=== PATIENT | female | born 1965 | race Caucasian/White ===

== ENCOUNTER 2024-04-20 16:59 | Inpatient (IN) | payer OTHER ==
[~2024-04-20] VITALS: Ht 152.4 cm; Wt 70.8 kg
[2024-04-20 17:00] VITALS: BP 126/80; PULSE 72; RESP 18; TEMP 98.6; O2SAT 95
[2024-04-20] MEDS: NACL 0.9% 1,000 ML IV ONE ×2 (17:32→19:04)
[2024-04-20] MEDS: ONDANSETRON 4 MG/2 ML VIAL IVP ONE (17:33)
[2024-04-20 17:46] LABS: BASOPHILS % (AUTO) 0.9 % (0.0-2.0); EOSINOPHILS # (AUTO) 0.1 K/uL (0-0.4); HEMATOCRIT 39.2 % (36-48); HEMOGLOBIN 13.5 g/dL (12.0-16.0); LYMPHOCYTES # (AUTO) 2.1 K/uL (2.5-16.5); LYMPHOCYTES % (AUTO) 39.2 % (20.5-51.1); MEAN CORPUSCULAR HEMOGLOBIN 32 pg (27-31); MEAN CORPUSCULAR HGB CONC 35 g/dL (33-37); MEAN CORPUSCULAR VOLUME 93.6 fL (80-94); MONOCYTES # (AUTO) 0.3 K/uL (0.8-1.0); MONOCYTES % (AUTO) 5.6 % (1.7-9.3); NEUTROPHILS # (AUTO) 2.8 K/uL (1.8-7.7); NEUTROPHILS % (AUTO) 52.3 % (42.2-75.2); PLATELET COUNT (AUTO) 237 K/uL (140-450); RED BLOOD CELL COUNT(AUTO) 4.19 MIL/uL (4.20-5.40); RED CELL DISTRIBUTION WIDTH 13.3 % (11.6-13.7); WHITE BLOOD COUNT (AUTO) 5.3 K/uL (4.8-10.8)
[2024-04-20 18:12] LABS: ANION GAP 15.4 (8-16); CARBON DIOXIDE 26.4 mmol/L (21-32); CREATININE 1.4 mg/dL (0.6-1.3); POTASSIUM 3.8 mmol/L (3.5-5.1)
[2024-04-20 18:16] LABS: ALANINE AMINOTRANSFERASE 86 U/L (12-78); ALCOHOL, BLOOD 13 mg/dL (<10); ALKALINE PHOSPHATASE 127 U/L (50-136); ASPARTATE AMINOTRANSFERASE 78 U/L (15-37); BILIRUBIN,DIRECT 0.1 mg/dL (0.0-0.3); CREATINE KINASE, TOTAL 105 U/L (26-192); TOTAL BILIRUBIN 0.5 mg/dL (0.0-1.0); TOTAL PROTEIN, SERUM 7.5 g/dL (6.4-8.2)
[2024-04-20 18:27] LABS: ACETAMINOPHEN < 0.5 ug/ml (10-30)
[2024-04-20 19:59] VITALS: O2SAT 100
[2024-04-20 22:08] VITALS: O2SAT 100
[2024-04-20 22:16] LABS: AMPHETAMINE, URINE POSITIVE ng/ml (NEG <=1000); BARBITURATE, URINE NEGATIVE ng/ml (NEG <=200); BENZODIAZEPINE, URINE NEGATIVE ng/mL (NEG <=200); CANNABINOID, URINE NEGATIVE ng/mL (NEG <=50); COCAINE, URINE NEGATIVE ng/mL (NEG <=300); OPIATE, URINE POSITIVE ng/mL (NEG <=2000); PHENCYCLIDINE SCREEN,URINE NEGATIVE ng/mL (NEG <=25)
[2024-04-20] MEDS ORDERED: cefTRIAXone 1,000 MG VIAL ONE (23:27)
[2024-04-20] MEDS ORDERED: AZITHROMYCIN 500 MG INJ VIAL IV ONE (23:33)
[2024-04-20] MEDS: AZITHROMYCIN 500 MG in DEXTROSE 5% 250 ML IV ONE (23:39)
[2024-04-20 23:52] LABS: LACTIC ACID 4.1 mmol/L (0.4-2.0)
[2024-04-21] VITALS (10 sets, daily range): BP systolic 97–119; BP diastolic 50–65; PULSE 64–89; RESP 18–20; TEMP 96.5–97.9; O2SAT 95–100
[2024-04-21] MEDS ORDERED: ACETAMINOPHEN 325 MG TAB PO PRN (01:55)
[2024-04-21] MEDS ORDERED: ONDANSETRON 4 MG/2 ML VIAL IVP PRN (01:55)
[2024-04-21] MEDS: NACL 0.9% 1,000 ML IV SCH (02:35)
[2024-04-21 09:02] LABS: BASOPHILS # (AUTO) 0.1 K/uL (0.00-0.22); BASOPHILS % (AUTO) 0.6 % (0.0-2.0); EOSINOPHILS # (AUTO) 0.1 K/uL (0-0.4); EOSINOPHILS % (AUTO) 0.6 % (0.0-4.0); HEMATOCRIT 32.6 % (36-48); HEMOGLOBIN 11.3 g/dL (12.0-16.0); LYMPHOCYTES # (AUTO) 2.2 K/uL (2.5-16.5); LYMPHOCYTES % (AUTO) 24.5 % (20.5-51.1); MEAN CORPUSCULAR HEMOGLOBIN 33 pg (27-31); MEAN CORPUSCULAR HGB CONC 35 g/dL (33-37); MEAN CORPUSCULAR VOLUME 94.3 fL (80-94); MONOCYTES # (AUTO) 0.5 K/uL (0.8-1.0); MONOCYTES % (AUTO) 5.4 % (1.7-9.3); NEUTROPHILS # (AUTO) 6.3 K/uL (1.8-7.7); NEUTROPHILS % (AUTO) 68.9 % (42.2-75.2); PLATELET COUNT (AUTO) 190 K/uL (140-450); RED BLOOD CELL COUNT(AUTO) 3.46 MIL/uL (4.20-5.40); RED CELL DISTRIBUTION WIDTH 13.3 % (11.6-13.7); WHITE BLOOD COUNT (AUTO) 9.1 K/uL (4.8-10.8)
[2024-04-21 09:22] LABS: ANION GAP 10.6 (8-16); CALCIUM 8.2 mg/dL (8.5-10.1); CARBON DIOXIDE 27.8 mmol/L (21-32); CREATININE 1.1 mg/dL (0.6-1.3); POTASSIUM 4.4 mmol/L (3.5-5.1)
[2024-04-21 09:27] LABS: MAGNESIUM 1.7 mg/dL (1.8-2.4); PHOSPHORUS 3.2 mg/dL (2.5-4.9)
[2024-04-21] MEDS ORDERED: LORazepam 1 MG TAB PO PRN (12:50)
[2024-04-21] MEDS: MAGNESIUM OXIDE 400 MG TAB PO SCH (15:30)
[2024-04-21] MEDS: AZITHROMYCIN 500 MG in DEXTROSE 5% 250 ML IV SCH (21:31)
[2024-04-22] VITALS: BP 104/46; PULSE 73; PULSE 81; RESP 19; TEMP 97.4; O2SAT 99
[2024-04-22 01:59] VITALS: O2SAT 98
[2024-04-22 04:00] VITALS: BP 126/56; PULSE 77; PULSE 82; RESP 19; TEMP 97.9; O2SAT 97
[2024-04-22 05:25] LABS: BASOPHILS % (AUTO) 0.6 % (0.0-2.0); EOSINOPHILS # (AUTO) 0.1 K/uL (0-0.4); EOSINOPHILS % (AUTO) 1.1 % (0.0-4.0); HEMATOCRIT 31.6 % (36-48); LYMPHOCYTES # (AUTO) 2.7 K/uL (2.5-16.5); LYMPHOCYTES % (AUTO) 40.8 % (20.5-51.1); MEAN CORPUSCULAR HEMOGLOBIN 33 pg (27-31); MEAN CORPUSCULAR HGB CONC 35 g/dL (33-37); MONOCYTES # (AUTO) 0.4 K/uL (0.8-1.0); MONOCYTES % (AUTO) 5.5 % (1.7-9.3); NEUTROPHILS # (AUTO) 3.4 K/uL (1.8-7.7); PLATELET COUNT (AUTO) 179 K/uL (140-450); RED CELL DISTRIBUTION WIDTH 13.2 % (11.6-13.7); WHITE BLOOD COUNT (AUTO) 6.5 K/uL (4.8-10.8)
[2024-04-22 05:36] LABS: ANION GAP 9.7 (8-16); CALCIUM 8.1 mg/dL (8.5-10.1); CARBON DIOXIDE 28.9 mmol/L (21-32); POTASSIUM 3.6 mmol/L (3.5-5.1)
== END 2024-04-22 09:37 | disposition left against medical advice (07) | DRG 812 ==
LOC: MED 16:59 → EDBD 16:59 → MTU 04-21 01:55 → MMU 04-21 02:26 → MTU 04-21 02:51
PROVIDERS: ADMIT Student in an Organized Health Care Education/Training Program; ATTEND Student in an Organized Health Care Education/Training Program
DX: T50.901A Poisoning by unspecified drugs, medicaments and biological substances, accidental (unintentional), initial encounter (principal); J96.01 Acute respiratory failure with hypoxia; G92.8 Other toxic encephalopathy; J15.69 Pneumonia due to other Gram-negative bacteria; E87.20 Acidosis, unspecified; J15.9 Unspecified bacterial pneumonia; Z53.29 Procedure and treatment not carried out because of patient's decision for other reasons; Y92.89 Other specified places as the place of occurrence of the external cause; Z98.891 History of uterine scar from previous surgery
CPT/HCPCS: 36415; 71045; 80048; 80076; 80305; 82550; 83605; 83735; 83880; 84100; 84484; 85025; 87040; 87081; 93005; G0480; G0482; J0456; J0696; J2405; J7060; Q0092